=== PATIENT | female | born 1955 | race Caucasian/White ===

== ENCOUNTER 2017-02-27 14:56 | Inpatient (IN) | payer OTHER ==
[2017-02-27] VITALS (9 sets, daily range): BP systolic 88–122; BP diastolic 36–83; PULSE 115–147; RESP 18–24; O2SAT 94–100
[~2017-02-27] VITALS: Ht 167.6 cm; Wt 89.3 kg
[2017-02-27 15:18] LABS: BASOPHILS % (AUTO) 0.4 % (0-3); EOSINOPHILS % (AUTO) 1.1 % (0-5); MONOCYTES % (AUTO) 9.5 % (4-12); Mean Corpuscular Hemoglobin 31.1 pg (27.0-35.0); Mean Corpuscular Volume 90.2 fL (81-100); NEUTROPHILS % (AUTO) 59.9 % (40-74); Platelet Count 165 bil/L (150-400)
--- NOTE | 2017-02-27 15:27 | ED.REPORT ---
HPI-General Illness Date of Service Feb 27, 2017 ED Provider: Jules Canseco MD A 61 year old female with a history of PVCs presents to the ED via EMS with substernal chest pain onset suddenly at 13:45 while sitting down at work after lunch. The pain was described as "tightness," rated 6/10 with radiation down her left arm. Associated symptoms include palpitations, lightheadedness, and near-syncope. The patient denies shortness of breath or other symptoms. EMS found the patient in new-onset rapid atrial fibrillation with a heart rate of 170. She was given 22mg Diltiazem and 324 mg ASA, with mild relief of symptoms. After medication the patient's BP was 88/50 and her heart rate fell to 140 but remained irregular. The patient had similar symptoms six weeks ago, which resolved without treatment. The patient denies a history of RI, hypertension, stroke, or blood clots. She was previously prescribed Metoprolol for PVCs but stopped taking this medication one year ago. Nursing Notes Stated Complaint: RAPID HEART RATE Chief Complaint: Dysrhythmia/Cardiac Nursing Notes Reviewed: Yes Allergies: Coded Allergies: No Known Allergies (Unverified , 02/27/17) No Active Prescriptions or Reported Meds General Time Seen by MD: 15:25 Chief Complaint Chest pain Hx Obtained From: Patient Arrived By: Ambulance Sudden in Onset?: Yes Onset Occurred: 1 - 4 hours ago Symptom Duration: Since onset Location: : Chest Quality: Painful (Tight) Radiation: : Arm left Severity: Current: Mild Severity: Maximum: Pain level 6 out of 10 Associated with: Denies: Shortness of breath Recent Healthcare: No recent doctor visit Similar Sx Previous: Yes Past Medical History Past Medical History PVCs Past Surgical History Hysterectomy Appendectomy Smoking History Current Every Day Smoker (< 1 pack per day) Social History 5-6 alcoholic drinks per week Occupation [employer] Status Independent Review of Systems + Near-syncope Full Review of Systems Constitutional: Denies: Fever Respiratory: Denies: Non-productive cough, Shortness of breath Cardiovascular: Reports: Chest pain (Substernal), Palpitations GI: Denies: Diarrhea, Vomiting Neurologic: Reports: Lightheaded Complete sys rev & neg: except as marked. Physical Exam Vital Signs Vital Signs Date Time Temp Pulse Resp B/P Pulse Ox O2 Delivery O2 Flow Rate FiO2 02/27/17 19:00 115 24 114/66 94 Room Air 02/27/17 18:20 140 21 100/63 95 02/27/17 17:36 136 102/57 02/27/17 17:28 147 22 92/36 95 Room Air 02/27/17 16:52 142 24 88/54 95 Room Air 02/27/17 16:30 142 18 95/75 97 Room Air 02/27/17 15:08 126 20 113/83 100 Room Air Initial VS: Reviewed Extremities: Vascular intact (Warm and well-perfused), Neuro intact, No swelling (Calves), No tenderness (Calves) Skin: Warm, Dry Psychiatric: Mood/affect normal, Behavior normal, Normal thought content General/Constitutional: Awake, Alert Head / Eyes: Atraumatic, Normocephalic ENT: Airway patent, Mucous membranes moist Respiratory / Chest: Breath sounds NL, Breath sounds = bilat, No respiratory distress Cardiovascular: Heart sounds NL, Peripheral circulation NL (Good distal pulses) Heart Rate / Rhythm: Positive: Irregular rhythm, Tachycardia Abdomen: Soft, Non-tender, No distention Neurologic: Oriented X3, Speech NL (Speaking in full sentences ), No motor deficits Speech: Negative: Slurred No facial droop No lateralizing neurological deficits Interpretation & Diagnostics Lab Results Interpretation Result Diagram: 02/27/17 1500 02/27/17 1500 Test 02/27/17 15:00 White Blood Count 9.0th/mm3 (3.8-10.1) Red Blood Count 5.01mil/mm3 (3.90-5.20) Hemoglobin 15.6g/dL (12.0-15.6) Hematocrit 45.2% (35.0-46.0) Mean Corpuscular Volume 90.2fL (81-100) Mean Corpuscular Hemoglobin 31.1pg (27.0-35.0) Mean Corpuscular Hemoglobin Concent 34.5% (32.0-37.0) Red Cell Distribution Width 13.5% (12.3-15.4) Platelet Count 165bil/L (150-400) Neutrophils (%) (Auto) 59.9% (40-74) Lymphocytes (%) (Auto) 28.9% (14-46) Monocytes (%) (Auto) 9.5% (4-12) Eosinophils (%) (Auto) 1.1% (0-5) Basophils (%) (Auto) 0.4% (0-3) Hold Blue Top Tube Received (Received) Sodium Level 136mEq/L (134-144) Potassium Level 4.0mEq/L (3.5-5.2) Chloride Level 98mEq/L (97-108) Carbon Dioxide Level 21mmol/L (18-29) Blood Urea Nitrogen 12mg/dL (8-27) Creatinine 0.99mg/dL (0.57-1.00) Estimat Glomerular Filtration Rate 81mL/min (>59) Glucose Level 153mg/dL (60-99) Calcium Level 9.5mg/dL (8.5-10.1) Magnesium Level 2.0mg/dL (1.6-2.6) Total Bilirubin 0.3mg/dL (0.0-1.2) Aspartate Amino Transf (AST/SGOT) 17U/L (0-50) Alanine Aminotransferase (ALT/SGPT) 8U/L (0-32) Alkaline Phosphatase 92U/L (25-165) Pro-B-Type Natriuretic Peptide 217.6pg/mL (0-287) Total Protein 7.1g/dL (6.4-8.4) Albumin 4.0g/dL (3.4-5.0) Thyroid Stimulating Hormone (TSH) 2.680uIU/mL (0.450-4.500) Hold Red Top Tube Received (Received) ECG Interpretation ECG Interpretation: Atrial fibrillation with RVR rate 130 Normal axis Normal intervals No acute ST segments or T-wave abnormalities Time: 15:09 Interpreted by: ED physician ECG Interpretation: Repeat ECG obtained after attempted cardioversion: Atrial fibrillation rate 154 Otherwise unchanged from prior Time: 16:00 Interpreted by: ED physician X-Ray Chest Interpretation Chest Xray Interpretation: IMPRESSION: Interstitial opacities present bilaterally of indeterminate acuity. Pulmonary edema and/or atypical infection cannot be excluded and clinical correlation recommended. Dictated by: Placido GUSTAFSON Interpreted: Elizabeth Don MD on 02/27/2017 at 15:33 View: Portable Interpretation / Wet Read by: Interpret - Radiologist Procedures Electrical Cardioversion Electrical Cardioversion: Synchronized electrical cardioversion x2 Both times patient went into sinus rhythm rate 90s then within one minute was back in atrial fibrillation. Time: 15:55 Procedure Performed by: ED physician Indication: Atrial fibrillation Consent / Setup / Site Prep: Informed consent provided, Consent from patient , Time-out performed, Placed on oxygen, Placed on pulse oximeter, Place on child monitor, Hand hygiene observed, Stand sterile technique Procedural Sedation/Analgesia: Sedation: Etomidate Joules: 150 Procedure Successful: Yes Post-Procedure Rhythm: Persistent atrial fib Post-Procedure / Complications: No complications, Tolerated procedure well, Patient stable Proced Mod Sedation/Analgesia Time: 15:53 Procedure Performed by: ED physician Sedation Time: Enter # minutes (<10) Consent / Setup: Informed consent provided, Consent from patient, Time-out performed, Hand hygiene observed, Stand sterile technique, Head of bed at 30-60 deg Indication: Other (Electrical Cardioversion) Preparation: radiation monitor applied, Pulse oximeter applied, Constant attendance, IV access established, Eval last meal time, Supplemental oxygen, Procedure explained VS Prior to Procedure: O2 saturation normal, Blood pressure normal, Respiratory rate normal Airway Exam: Normal facial anatomy CVS/Resp Exam: Normal breath sounds Neuro Exam: Alert, No acute distress Sedation: Sedation: Etomidate ASA Classification: 1 normal healthy patient Response During Procedure: Handled secretions adeq, Maintained airway well, Oxygenation stable, Sedation appropriate, Vital signs stable Complications During/After: None Reversal: None required Mental Status After Procedure: Alert, Oriented X3, Response to verbal stim, Response to painful stim Post-Procedure: Alert prior to discharge, Vital signs normal Attestation: I performed procedure, I performed sedation Re-Eval/Medical Decision Med Decision/Clinical Course Pt is a 61 year old female with a history of PVCs who presents to the ED via EMS with substernal chest pressure onset suddenly at 13:45 while sitting down at work after lunch. The pain was described as "tightness," rated 6/10 with radiation down her left arm. Associated symptoms include palpitations, lightheadedness, and near-syncope. EMS found the patient in new-onset rapid atrial fibrillation with a heart rate of 170. She was given 22mg Diltiazem and 324 mg ASA, with mild relief of symptoms. After medication the patient's BP was 88/50 and her heart rate fell to 140 but remained irregular. The patient had similar symptoms six weeks ago, which resolved without treatment. The patient denies a history of RI, hypertension, stroke, or blood clots. She was previously prescribed Metoprolol for PVCs but stopped taking this medication one year ago. Upon arrival the patient is in atrial fibrillation with rapid ventricular response, her systolic blood pressure is in the low 100s and she is mentating normally. IV access was obtained, patient was placed on continuous child monitor and I administered a 2 L fluid bolus. ECG 1509 Atrial fibrillation with RVR rate 130 Normal axis Normal intervals No acute ST segments or T-wave abnormalities Labs: CBC unremarkable CMP unremarkable Good renal function No electrolyte abnormalities Normal troponin Chest x-ray: IMPRESSION: Interstitial opacities present bilaterally of indeterminate acuity. Pulmonary edema and/or atypical infection cannot be excluded and clinical correlation recommended. Dictated by: Placido Gordon RRKsenia Interpreted: Elizabeth Don MD on 02/27/2017 at 15:33 Given the patient's borderline blood pressure and the fact that she is able to pinpoint that her atrial fibrillation started just 1-2 hours prior to arrival I elected to proceed with electrical cardioversion. I was able to successfully cardiovert her back to sinus rhythm however she quickly went back into atrial fibrillation with RVR. A second attempt was made but again she quickly went back into A. fib with RVR. Repeat ECG 1600 obtained after attempted cardioversion: Atrial fibrillation rate 154 Otherwise unchanged from prior After attempted cardioversion the patient's blood pressure had improved into the 120s to 130s systolic and therefore I opted to initiate a diltiazem drip however she did not tolerate this in terms of her blood pressure, even at a relatively low dose her blood pressure dropped into the 80s systolic and she did not achieve adequate rate control. Therefore the diltiazem drip was stopped. I consult with cardiology and they recommended that she be treated with amiodarone. A 150 mg loading dose of amiodarone was administered and this did not significantly change her blood pressure which maintained in the 120s systolic and her heart rate improved into the low 100s. At this time, cause of the patient's A. fib with RVR is unclear. Upon initial workup by CT no evidence of acute coronary ischemia, pulmonary embolism or electrolyte abnormalities. I have administered IV magnesium to this patient in order to aid in management of her arrhythmia. Patient was admitted to the [facility] in consultation with cardiology. She was transferred in stable condition. Time of Eval: 15:42 Patient Status: Condition improved Re-Evaluation/Progress Note: Discussed with patient plan for sedation and electric cardioversion. She agrees with plan for care and all questions were addressed. Time of Eval: 16:34 Patient Status: Condition improved Re-Evaluation/Progress Note: Patient is now awake and alert after the sedation. Discussed results of electic cardioversion. Discussed with patient and her ECG, lab, and x-ray results, diagnosis, and plan for admit. They agree with plan for care and all questions were addressed. Time of Eval: 16:51 Patient Status: Condition unchanged Re-Evaluation/Progress Note: Patient rechecked. She reports feeling "groggy." Her heart rate is 118 and her BP is now 88/54. Time of Eval: 17:53 Patient Status: Condition improved Re-Evaluation/Progress Note: Patient rechecked. Consultation #1: Referral / Consult Name: Celso Edwards MD Consulted With: Cardiology Call Returned at: 16:53 Clinical Law Professor: Will see patient, Agrees with eval, Agrees with plan Note: Recommends stopping diltiazem, starting amiodarone and Lovenox. Recommends admission. Consultation #2: Referral / Consult Name: J Carlos Frank DO Consulted With: Hospitalist Call Returned at: 18:11 Clinical Law Professor: Agrees with eval, Agrees with plan, Accepts admit Note: Discussed patient's case Counseled Regarding: Diagnosis, Lab results, Need for admission Discharge & Departure Primary Impression: Atrial fibrillation with RVR Additional Impressions: Hypotension Hypotension type: unspecified hypotension type Qualified Code: I95.9 - Hypotension, unspecified Chest tightness Near syncope Disposition: ADMITTED TO HOSPITAL Discharge Condition All VS Reviewed: Yes Condition: Improved Referrals: [facility] Crit Care Except Billable Proc Time Spent: 135-164 minutes Services Performed: Patient management by me, Time spent at bedside, Reviewing test results, Reviewing imaging, Discussing patient care, Documentation in record, Time with fam/surrogate Scribe Attestation Portions of this note were transcribed by Milka Kelsey. I, Dr. Canseco, personally performed the history, physical exam, and medical decision-making; I reviewed and confirmed the accuracy of the information in the transcribed note. Signed by: Jorge Atkinson, 02/27/2017, 18:50 copies to: [facility] Jules Canseco MD Feb 27, 2017 15:27 MILKA KELSEY Feb 27, 2017 15:33
[2017-02-27] MEDS ORDERED: Etomidate 2 mg/mL 20 mL Inj IV ONE (15:30)
[2017-02-27] MEDS ORDERED: 0.9% Sodium Chloride 1,000 ML IV ONE ×2 (15:30→18:05)
--- NOTE | 2017-02-27 15:34 | DRSVH ---
PROCEDURE: X-RAY CHEST ONE VIEW, PORTABLE ([id number]) INDICATIONS: cp TECHNIQUE: One view of the chest was acquired. COMPARISON: None. FINDINGS: Surgical changes and devices: None. Lungs and pleura: No pleural effusions or pneumothorax. Interstitial opacities present bilaterally. Mediastinum: Mediastinal contours appear normal. Heart size is normal. Bones and chest wall: No suspicious bony lesions. Overlying soft tissues appear unremarkable. IMPRESSION: Interstitial opacities present bilaterally of indeterminate acuity. Pulmonary edema and/ or atypical infection cannot be excluded and clinical correlation recommended. Dictated by: Placido Gordon [facility] Interpreted: Elizabeth Don MD on 02/27/2017 at 15:33 Transcribed by: DARWIN on 02/27/2017 at 15:33 Approved by: Elizabeth Don MD, PhD on 02/27/2017 at 17:18
[2017-02-27 15:44] LABS: TROPONIN T < 0.010 ug/L (0.0-0.011)
[2017-02-27] MEDS ORDERED: Magnesium Sulfate 2 Gm/50 mL Water Premix IV ONE (15:56)
[2017-02-27] MEDS ORDERED: Ondansetron 2 mg/mL 2 mL Inj IVPUSH PRN ×2 (16:05→19:35)
[2017-02-27] MEDS ORDERED: Diltiazem Inj 125 MG in 0.9% Sodium Chloride 100 ML, Pharmacy To Mix 1 EA IV SCH (16:05)
[2017-02-27] MEDS ORDERED: Alum-Mag Hydrox-Simeth 30 mL Suspension PO PRN ×2 (16:05→19:35)
[2017-02-27] MEDS ORDERED: Amiodarone 150 mg/100 mL D5W 150 MG in IV Premix 1 EACH IV ONE (17:00)
[2017-02-27] MEDS ORDERED: Polyethylene Glycol (PEG) 17 Gm Powder PO PRN (19:35)
--- NOTE | 2017-02-27 20:20 | PCM.HPMED ---
Subjective Date of Service Feb 27, 2017 Primary Provider: Admitting Physician: J Carlos Frank DO Primary Care Physician: Nopcp Attending Physician: J Carlos Frank DO Admit Status: From the Emergency Department, Admit to [facility] Team Chief Complaint: Chest pain, heart palpitations History of Present Illness: This is a 61-year-old female with past medical history only significant for PVCs. She presented to the emergency room with chest tightness after having her lunch today, her symptoms were accompanied by lightheadedness and heart palpitations left jaw pain and left arm pain. No significant shortness of breath or diaphoresis no nausea or vomiting. She has a history of PVCs and was previously taking metoprolol. She states her insurance had changed and she no longer has a PCP or takes any prescription medications. She has not been taking metoprolol for 1 year. She has been having upper respiratory infection going on for 5 weeks with productive cough with phlegm, sore throat and congestion. Her has also been sick. She has had no difficulty with orthopnea. Prior to arrival in the emergency room, EMS diagnosed her with A. fib with RVR and she received Cardizem in Route which was noted to lower her blood pressure to around 80 systolic. In the emergency room cardioversion was attempted twice successfully returning to normal sinus rhythm but quickly reverted back into A. fib with RVR. A Cardizem drip was attempted which showed her blood pressure again. Cardiology was consulted who recommended amiodarone Review of Systems: As in history of present illness otherwise 12 point review of systems negative Allergies Coded Allergies: No Known Allergies (Unverified , 02/27/17) Home Medications No home medications PMH History of PVCs treated with metoprolol Surgical History Hysterectomy 2 (partial and full), appendectomy, removal of ovarian cyst, bunion surgery, right hand fracture Family History Mother at age 93 of old age. Father of Alzheimer's disease at age 87. Social History Hx Alcohol Use: Yes Hx Substance Use: No Smoking Status: Current Every Day Smoker (< 1 pack per day) Living Arrangement: with Family Exam Vital Signs Vital Sign - Last Date Time Temp Pulse Resp B/P Pulse Ox O2 Delivery O2 Flow Rate FiO2 02/27/17 20:04 136 02/27/17 19:00 24 114/66 94 Room Air Exam General: Alert, Oriented X3 NAD Head: Normocephalic, atraumatic Eyes: AILEEN, EOMI, no scleral Icterus Oropharynx: pink moist oral mucosa Neck: supple, trachea midline, no adenopathy Chest: clear to auscultation B/L, no wheezing rales or rhonchi Heart: Irregularly irregular. Tachycardic. Normal S1, S2, no murmurs noted Abdomen: soft, non-tender. Bowell sounds are normoactive. No guarding or rebound. Extremities: no cyanosis, clubbing or edema. No acute joint inflammation. Skin: no acute rashes or lesions noted Neuro: Cranial nerves II-XII intact, no focal findings. Psych: normal judgement and insight. Lab and Diagnostics Result Diagram: 02/27/17 1500 02/27/17 1500 Assessment & Plan This is a 61-year-old female with past medical history only significant for PVCs. She presented with chest pain and admitted with A. fib with RVR. she received Cardizem in Route which was noted to lower her blood pressure to around 80 systolic. In the emergency room cardioversion was attempted twice successfully returning to normal sinus rhythm but quickly reverted back into A. fib with RVR. A Cardizem drip was attempted which lowered her blood pressure again. Cardiology was consulted who recommended amiodarone. A. fib with RVR: -Patient intolerant of Cardizem due to hypotension. -Amiodarone has been started in the emergency room. I will continue the amiodarone drip. -Cardiology has been consulted -Magnesium and TSH within normal limits. We will check echocardiogram, trend troponin Chest pain: -Morphine, oxygen, nitroglycerin as needed. Continue daily aspirin. -Trend troponin -Check lipid panel Tobacco use disorder: -Advised on smoking cessation, we will provide a nicotine patch in the hospital. Nonspecific chest x-ray findings: -May be related to her ongoing 4-5 week URI symptoms versus possible pleural edema in the setting of rapid A. fib. -Observe for signs of infection, white count within normal limits. Afebrile -I recommend 4-6 week repeat chest x-ray CODE STATUS: Full code DVT prophylaxis: Lovenox, will be considered for Coumadin Disposition: Patient is independent with her ADLs, no significant needs anticipated at discharge. J Carlos Frank DO Feb 27, 2017 20:20
[2017-02-27] MEDS ORDERED: Amiodarone 360 mg/200 mL D5W Premix IV ONE (20:47)
[2017-02-27] MEDS ORDERED: IV Premix 1 EACH IV ONE (20:47)
[2017-02-27] MEDS: Amiodarone 360 mg/200 mL D5W 360 MG, Filter, Taxol 14256-28 1 EACH in IV Premix 1 EACH IV SCH (21:09)
--- NOTE | 2017-02-27 22:21 | NUR ---
ADMIT Patient admit for irregular heart rate. Amiodarone gtt started in room. Denies any chest pain or SOB. Has had an ongoing cough for a month per patient report. Patient is a smoker and patch ordered for morning. Oriented to room and call light. Will continue to monitor.
[2017-02-28] VITALS (12 sets, daily range): BP systolic 99–134; BP diastolic 67–84; PULSE 94–131; RESP 18–24; O2SAT 96–99
[2017-02-28] MEDS ORDERED: Amiodarone 360 mg/200 mL D5W Premix IV ONE ×2 (02:44→15:38)
[2017-02-28] MEDS ORDERED: IV Premix 1 EACH IV ONE ×2 (02:44→15:38)
[2017-02-28] MEDS: Amiodarone 360 mg/200 mL D5W 360 MG, Filter, Taxol 14256-28 1 EACH in IV Premix 1 EACH IV SCH ×2 (02:48→15:45)
[2017-02-28 03:21] LABS: TROPONIN T 0.01 ug/L (0.0-0.011)
--- NOTE | 2017-02-28 07:20 | NUR ---
Phone Call with Family Spoke with her daughter, Tali, this morning who said she was from [place]. Patient gave verbal consent that this nurse could speak with her daughter and give out medical information. Gave her daughter a verbal update on her mother's care and situation. She said she would call her mother later. Care continues.
--- NOTE | 2017-02-28 07:39 | PCM.PNMED ---
Subjective Date of Service Feb 28, 2017 Subjective No palpitations, or chest pressure or dyspnea. No nausea or leg pain or edema. One previous episode of heart racing. No nausea or diarrhea. Overnight events reviewed. Exam Vital Signs Vital Sign - Last Date Time Temp Pulse Resp B/P Pulse Ox O2 Delivery O2 Flow Rate FiO2 02/28/17 04:34 111 02/28/17 04:00 22 99/70 98 Nasal Cannula 2.00 02/27/17 20:00 36.9 Intake and Output 02/27/17 02/27/17 02/28/17 Cumulative From/Thru 14:59 22:59 06:59 02/27/17 15:08 - 02/28/17 04:51 Intake Total 2000 ml 220 ml 2220 ml Balance 2000 ml 220 ml 2220 ml Intake IV Total 2000 ml 220 ml 2220 ml Exam Alert and in no distress. Anicteric sclera Lungs clear, heart irregular and not tachy. Abdomen ND, NT No edema No rash. IVs and Medications Medications Reviewed: Medications were reviewed in detail Lab and Diagnostics Result Diagram: 02/27/17 1500 02/27/17 1500 Assessment & Plan This is a 61-year-old female with past medical history only significant for PVCs. She presented with chest pain and admitted with A. fib with RVR. she received Cardizem in Route which was noted to lower her blood pressure to around 80 systolic. In the emergency room cardioversion was attempted twice successfully returning to normal sinus rhythm but quickly reverted back into A. fib with RVR. A Cardizem drip was attempted which lowered her blood pressure again. Cardiology was consulted who recommended amiodarone. #. Atrial fibrillation with rapid ventricular response., POA. -Patient intolerant of Cardizem due to hypotension. -Amiodarone has been started in the emergency room. I will continue the amiodarone drip. -Cardiology has been consulted -Magnesium and TSH within normal limits. We will check echocardiogram, trend troponin ECHO today, consider CT Chest angio (father with unprovoked PE) #. Chest pain, POA. Resolved with rate control. -Morphine, oxygen, nitroglycerin as needed. Continue daily aspirin. -Trend troponin -Check lipid panel Plan as above. #. Tobacco use disorder (tobacco dependence), POA: -Advised on smoking cessation, we will provide a nicotine patch in the hospital. #. Nonspecific chest x-ray findings: -May be related to her ongoing 4-5 week URI symptoms versus possible pleural edema in the setting of rapid A. fib. -Observe for signs of infection, white count within normal limits. Afebrile -I recommend 4-6 week repeat chest x-ray CODE STATUS: Full code DVT prophylaxis: Lovenox, will be considered for Coumadin Disposition: Patient is independent with her ADLs, no significant needs anticipated at discharge. Pain Evaluation: Adequate Pain Control Resuscitation Status: CPR: Attempt Resuscitation Time spent 30 min Lucas Islas MD Feb 28, 2017 07:39
[2017-02-28] MEDS ORDERED: MeTOProlol XL 50 mg ER24 Tablet PO SCH (12:35)
--- NOTE | 2017-02-28 14:22 | NUR ---
Metoprolol New order to give oral Metoprolol at 1235. Medication has not arrived from pharmacy yet. Just spoke with Pharmacist Abran Miranda who said he would check and make sure the medication gets delivered. Care continues.
--- NOTE | 2017-02-28 16:10 | CONS ---
[address] [address] CONSULTATION REPORT PATIENT: ELAINE NAJERA : 1955 MR#: [id number] ADMIT: 02/27/2017 JOB ID: [id number] DATE OF SERVICE: 02/28/2017 I have been asked to see Mrs. Fowler for evaluation of persistent rapid atrial fibrillation. The patient has no past significant cardiac history and states that she has no history of any other significant medical problems. She has not seen a family doctor in a couple of years and used to take metoprolol on a regular basis for treatment of PVCs, but this was discontinued about a year ago. Yesterday, around noon shortly after lunch, she noted the onset of lightheadedness and rapid palpitations. She had a previous episode similar several weeks earlier that lasted for about an hour and a half but this persisted and so she contacted paramedics and presented to the emergency department. Her rapid palpitations were associated with some chest tightness or pressure. She was treated with diltiazem but did not tolerate that because of hypotension and ended up being cardioverted in the emergency department on two occasions converting to sinus rhythm for a very brief period of time and then with recurrence of rapid atrial fibrillation fairly quickly. I was contacted at that time and recommended initiation of intravenous amiodarone. I also recommended loading with digoxin but I do not see that that has been done. She has remained on intravenous amiodarone throughout the night and atrial fibrillation with heart rates in the 100-120 range. She continues to note symptoms of subtle substernal tightness and is uncomfortable in the bed today because of some left intrascapular discomfort that seems to be more positional and musculoskeletal. INCOMPLETE: Dictation ends here.
--- NOTE | 2017-02-28 16:18 | CONS ---
[address] [address] CONSULTATION REPORT PATIENT: ELAINE NAJERA : 1955 MR#: [id number] ADMIT: 02/27/2017 JOB ID: [id number] DATE OF SERVICE: On personal review of her chest x-ray, shows normal cardiac silhouette. She has diffusely increased interstitial lung markings noted but no clear areas of focal consolidation or effusions. IMPRESSION: This patient has new onset atrial fibrillation with difficult rate control. She is not hyperthyroid or hypothyroid and her clinical exam does not suggest valvular heart disease as a cause. Her clinical history, however, does suggest that obstructive sleep apnea may play a role, although typically with obstructive sleep apnea, atrial fibrillation tends to be nocturnal in origin and hers occurred shortly after lunch yesterday. At this point objective will be to establish anticoagulation, improved rate control and then will go ahead and do a cardioversion tomorrow morning if she remains in atrial fibrillation. I am going to add metoprolol to her amiodarone therapy for improved rate control today and will also discontinue the Lovenox shots and instead start her up on Xarelto 20 mg daily. If she remains in atrial fibrillation then plans will be made to cardiovert her tomorrow. I anticipate she would be able to go home tomorrow afternoon on metoprolol and Xarelto with recommendations for reestablishing with a primary care provider and getting scheduled for a sleep study. I will make arrangements for her to follow up in our office with one of our physician assistants, who can help coordinate the rest of her outpatient followup.
--- NOTE | 2017-02-28 17:00 | NUR ---
Discontinued Cardizem Drip Noted that although the Cardizem drip had been discontinued it was still active in the eMAR. Notified Dr. Islas via page at [phone] and he discontinued it and followed up verbally when passing by. Amiodarone drip continued. Care continues.
--- NOTE | 2017-02-28 17:48 | DRSVH ---
[facility] [address] [place] [address] Echocardiogram Report Name: ELAINE NAJERA Date: 02/28/2017 Height: 66 in Hospital Exam Location: [facility] Weight: 198 lb Gender: Female BSA: 2.0 m2 : 1955 Age: 61 yrs BP: 99/70 mmHg Reason For Study: Atrial fibrillation History: smoker Ordering Physician: [facility]PITAL[facility] Performed By: Lucía Duque Referring Physician: Celso Edwards Interpretation Summary The left ventricular cavity is small. Left ventricular wall thickness is mild -moderately increased. The ejection fraction is estimated to be 60-65%. There are no focal wall motion abnormalities. The right ventricle is normal in size and function. The right ventricular systolic pressure is estimated at 30 mmHg assuming a right atrial pressure of 8 mm Hg. The left atrium is mildly dilated. The right atrium is normal in size. In the apical 4 view there appears to be a small left to right color signal originating from the interatrial septum suggesting a small PFO/ASD. Consider agitated saline contrast limited study when afib is better rate controlled. There is mild mitral regurgitation. There is no other significant valvular heart disease. The aortic root is normal size. Procedure: A two-dimensional transthoracic echocardiogram with color flow and Doppler was performed. The study quality was technically adequate. There is no prior echocardiogram noted for this patient. The patient was in atrial fibrillation with heart rates between 83-129 bpm during the exam. Left Ventricle: The left ventricular cavity is small. Left ventricular wall thickness is mild-moderately increased. The ejection fraction is estimated to be 60-65%. There are no focal wall motion abnormalities. Diastolic function could not be accurately assessed due to atrial fibrillation. Right Ventricle: The right ventricle is normal in size and function. Atria: The left atrium is mildly dilated. The right atrium is normal in size. In the apical 4 view there appears to be a small left to right color signal originating from the interatrial septum suggesting a small PFO/ASD. Consider agitated saline contrast study when afib is better rate controlled. Mitral Valve: The mitral valve is normal in structure and function. There is mild mitral regurgitation. Aortic Valve: The aortic valve is normal in structure and function. No aortic regurgitation is present. Tricuspid Valve: The tricuspid valve leaflets are thin and pliable. There is mild tricuspid regurgitation. The right ventricular systolic pressure is estimated at 30 mmHg assuming a right atrial pressure of 8 mm Hg. Pulmonic Valve: The pulmonic valve is not well visualized. There is a trace or physiologic amount of pulmonic regurgitation. There is no other significant valvular heart disease. Great Vessels: The aortic root is normal size. The ascending aorta is normal in size. The aortic arch is normal in size. The IVC is of normal diameter and collapses less than 50% with a sniff. This suggests a right atrial pressure of 8 mm Hg. Pericardium/ Pleura There is no pericardial effusion. MMode/2D Measurements & Calculations LVIDd: 3.3 cm LA dimension: 4.0 cm RA long axis LVOT diam: 1.9 cm LVIDs: 2.4 cm Ao root diam FS: 28.2 % LA A2 area: 22.0 cm RA area EPSS: 0.35 cm LA A4 area: 23.9 cm Aortic Jxn: 2.5 cm IVSd: 1.5 cm LA length (vol) : 16.1 cm asc Aorta Diam LVPWd: 1.2 cm RA vol LA vol: 76.6 ml : 44.6 ml Ao Arch Diam (Prox LA vol index RA Trans): 2.5 cm : 22.4 mm2 IVC diam: 2.0 cm LV mayorga. diameter/BSA LV sys. diameter/BSA RVD1 (basal) (cm/m^2): 1.7 (cm/m^2): 1.2 Doppler Measurements & Calculations Ao V2 max: 93.6 cm/secMV E max carlos a Med Peak E' Carlos A TR max carlos a Ao max P.5 mmHg : 90.3 cm/sec : 234.8 cm/sec Ao mean P.0 mmHg E/E' med: 9.2 TR max PG LVOT Max Carlos A Lat Peak E' Carlos A : 22.1 mmHg : 74.8 cm/sec PA V2 max E/E' lat: 6.6 : 78.5 cm/sec RANDOLPH(I,D): 2.5 cm E/e' average: 7.9 PA mean PG sev ratio: 0.83 : 0.96 mmHg PA Accel Time : 0.07 sec MV dec time: 0.11 sec Ao V2 mean LV V1 max PG PA V2 mean : 66.4 cm/sec : 44.4 cm/sec Ao V2 VTI LV V1 VTI: 12.7 cm RANDOLPH(V,D): 2.4 cm2 RANDOLPH indexed to BSA (cm^2/m^2): 1.2 Reading Physician:ANDRIY
[2017-02-28] MEDS: MeTOProlol XL 50 mg ER24 Tablet PO SCH (23:45)
[2017-03-01] VITALS (7 sets, daily range): BP systolic 106–139; BP diastolic 67–77; PULSE 60–75; RESP 17–24; O2SAT 95–99
[2017-03-01] MEDS ORDERED: IV Premix 1 EACH IV ONE (02:32)
[2017-03-01] MEDS ORDERED: Amiodarone 360 mg/200 mL D5W Premix IV ONE (02:32)
[2017-03-01] MEDS: Amiodarone 360 mg/200 mL D5W 360 MG, Filter, Taxol 14256-28 1 EACH in IV Premix 1 EACH IV SCH (02:42)
--- NOTE | 2017-03-01 03:11 | NUR ---
Converted to SR Pt converted to SR at around 0150 tonight. EKG in chart. Rate 60s-70s, continues on amiodarone gtt and was given metoprolol dose last night per order. Pt denied pain, but was instructed to report pain or other symptoms. Pt verbalized understanding. Pt appears to sleep comfortably between care interventions and is monitored on MP30.
--- NOTE | 2017-03-01 08:32 | NUR ---
Social Work Note: Screen Note Data& Assessment: EMR reviewed. Agnes Davalos is a 61 year old female admitted on 02/27/2017 for AFIB with RVR. Pt has [employer] insurance coverage. Pt lives in [place] with her and is independent at baseline. Pt is currently ambulating in her room with FWW and SBA. SW to continue to follow if any needs arise. No discharge needs identified at this time. Plan: Anticipated discharge home via POV when medically ready. SW to continue to follow if any needs arise. No discharge needs identified at [facility]
[2017-03-01] MEDS: MeTOProlol XL 50 mg ER24 Tablet PO SCH (08:55)
--- NOTE | 2017-03-01 13:35 | NUR ---
Communication with Doctors/Amiodarone Drip 35 - Spoke with Dr. Islas in morning multi-disciplinary rounds and confirmed that the Amiodarone drip was intended to be stopped as it has been discontinued in the eMAR shortly before. 0944 - Discontinued the Amiodarone. About 1100 - Placed her on remote telemetry instead of the MP30 once a box was available. Care continues.
--- NOTE | 2017-03-01 16:20 | PCM.DIMED ---
Discharge Instructions Date of Service Mar 01, 2017 Dates of Hospitalization Feb 27, 2017 at 19:05 Discharge Diagnosis Discharge Diagnosis 1. Paroxysmal atrial fibrillation 2. Tobacco dependence Diet No restrictions Activity No restrictions Call your provider Fever or Chills, Shortness of breath, Chest pain Patient Instructions Cardiology will contact you with an appointment to see a cardiology provider in the next 2-3 weeks. Lucas Islas MD Mar 01, 2017 16:20
[2017-03-01] MEDS ORDERED: METO-274 PO (16:21)
[2017-03-01] MEDS ORDERED: RIVA20TA PO (16:21)
--- NOTE | 2017-03-01 16:41 | PCM.DC.MED ---
Discharge Summary Date of Service Mar 01, 2017 Dates of Hospitalization Date of Hospital Admission Feb 27, 2017 at 19:05 Date of Discharge: Mar 01, 2017 Providers: Admitting Physician: J Carlos Frank DO Primary Care Physician: Denis Attending Physician: J Carlos Frank DO Diagnosis at Time of Discharge Diagnosis at Time of Discharge 1. Paroxysmal atrial fibrillation 2. Tobacco dependence Consultations Cardiology, Dr. Hays Procedures XRay, CTs & MRIs Chest x-ray: Surgical changes and devices: None. Lungs and pleura: No pleural effusions or pneumothorax. Interstitial opacities present bilaterally. Mediastinum: Mediastinal contours appear normal. Heart size is normal. Bones and chest wall: No suspicious bony lesions. Overlying soft tissues appear unremarkable. IMPRESSION: Interstitial opacities present bilaterally of indeterminate acuity. Pulmonary edema and/or atypical infection cannot be excluded and clinical correlation recommended. Dictated by: Placido Gordon RRA Interpreted: Elizabeth Don MD on 02/27/2017 at 15:33 Transcribed by: DARWIN on 02/27/2017 at 15:33 Approved by: Elizabeth Don MD, PhD on 02/27/2017 at 17:18 ECG 12 Lead Initial ECG revealed atrial fibrillation with rapid response at a rate of [address] depressions globally. Cardiac Echo Impression Interpretation Summary The left ventricular cavity is small. Left ventricular wall thickness is mild -moderately increased. The ejection fraction is estimated to be 60-65%. There are no focal wall motion abnormalities. The right ventricle is normal in size and function. The right ventricular systolic pressure is estimated at 30 mmHg assuming a right atrial pressure of 8 mm Hg. The left atrium is mildly dilated. The right atrium is normal in size. In the apical 4 view there appears to be a small left to right color signal originating from the interatrial septum suggesting a small PFO/ASD. Consider agitated saline contrast limited study when afib is better rate controlled. There is mild mitral regurgitation. There is no other significant valvular heart disease. The aortic root is normal size. Invasive Procedures None Brief History This is a 61-year-old female with past medical history only significant for PVCs. She presented to the emergency room with chest tightness after having her lunch today, her symptoms were accompanied by lightheadedness and heart palpitations left jaw pain and left arm pain. No significant shortness of breath or diaphoresis no nausea or vomiting. She has a history of PVCs and was previously taking metoprolol. She states her insurance had changed and she no longer has a PCP or takes any prescription medications. She has not been taking metoprolol for 1 year. She has been having upper respiratory infection going on for 5 weeks with productive cough with phlegm, sore throat and congestion. Her has also been sick. She has had no difficulty with orthopnea. Prior to arrival in the emergency room, EMS diagnosed her with A. fib with RVR and she received Cardizem in Route which was noted to lower her blood pressure to around 80 systolic. In the emergency room cardioversion was attempted twice successfully returning to normal sinus rhythm but quickly reverted back into A. fib with RVR. A Cardizem drip was attempted which showed her blood pressure again. Cardiology was consulted who recommended amiodarone Hospital Course This is a 61-year-old female with past medical history only significant for PVCs. She presented with chest pain and admitted with A. fib with RVR. she received Cardizem in Route which was noted to lower her blood pressure to around 80 systolic. In the emergency room cardioversion was attempted twice successfully returning to normal sinus rhythm but quickly reverted back into A. fib with RVR. A Cardizem drip was attempted which lowered her blood pressure again. Cardiology was consulted who recommended amiodarone. #. Atrial fibrillation with rapid ventricular response., POA. -Patient intolerant of Cardizem due to hypotension. -Amiodarone has been started in the emergency room. I will continue the amiodarone drip. -Cardiology has been consulted -Magnesium and TSH within normal limits. We will check echocardiogram, trend troponin The patient was placed in the amiodarone drip. She did convert to sinus rhythm. Her amiodarone drip was discontinued. Echocardiogram was fairly unremarkable, she did have evidence of small PFO. Cardiology recommended rate control and short-term follow-up as well as his overall total for anticoagulation. #. Chest pain, POA. Resolved with rate control. -Morphine, oxygen, nitroglycerin as needed. Continue daily aspirin. -Trend troponin -Check lipid panel This resolved with rate control and cardioversion. There is no evidence of anything involving beyond a rate-related symptoms.. #. Tobacco use disorder (tobacco dependence), POA: -Advised on smoking cessation, we will provide a nicotine patch in the hospital. #. Nonspecific chest x-ray findings: -May be related to her ongoing 4-5 week URI symptoms versus possible pleural edema in the setting of rapid A. fib. -Observe for signs of infection, white count within normal limits. Afebrile -I recommend 4-6 week repeat chest x-ray Consider a repeat chest x-ray 4-5 weeks. CODE STATUS: Full code Exam Vital Signs (Last) Date Time Temp Pulse Resp B/P Pulse Ox O2 Delivery O2 Flow Rate FiO2 03/01/17 12:22 36.8 61 18 121/77 99 Room Air 02/28/17 04:00 2.00 Exam Patient was seen and examined on the day of discharge. Test 02/27/17 15:00 02/28/17 02:19 02/28/17 08:35 White Blood Count 9.0th/mm3 (3.8-10.1) Red Blood Count 5.01mil/mm3 (3.90-5.20) Hemoglobin 15.6g/dL (12.0-15.6) Hematocrit 45.2% (35.0-46.0) Mean Corpuscular Volume 90.2fL (81-100) Mean Corpuscular Hemoglobin 31.1pg (27.0-35.0) Mean Corpuscular Hemoglobin Concent 34.5% (32.0-37.0) Red Cell Distribution Width 13.5% (12.3-15.4) Platelet Count 165bil/L (150-400) Neutrophils (%) (Auto) 59.9% (40-74) Lymphocytes (%) (Auto) 28.9% (14-46) Monocytes (%) (Auto) 9.5% (4-12) Eosinophils (%) (Auto) 1.1% (0-5) Basophils (%) (Auto) 0.4% (0-3) Hold Blue Top Tube Received (Received) Sodium Level 136mEq/L (134-144) Potassium Level 4.0mEq/L (3.5-5.2) Chloride Level 98mEq/L (97-108) Carbon Dioxide Level 21mmol/L (18-29) Blood Urea Nitrogen 12mg/dL (8-27) Creatinine 0.99mg/dL (0.57-1.00) Estimat Glomerular Filtration Rate 81mL/min (>59) Glucose Level 153mg/dL (60-99) Hemoglobin A1c 5.5% (4.8-5.6) Calcium Level 9.5mg/dL (8.5-10.1) Magnesium Level 2.0mg/dL (1.6-2.6) Total Bilirubin 0.3mg/dL (0.0-1.2) Aspartate Amino Transf (AST/SGOT) 17U/L (0-50) Alanine Aminotransferase (ALT/SGPT) 8U/L (0-32) Alkaline Phosphatase 92U/L (25-165) Pro-B-Type Natriuretic Peptide 217.6pg/mL (0-287) Total Protein 7.1g/dL (6.4-8.4) Albumin 4.0g/dL (3.4-5.0) Thyroid Stimulating Hormone (TSH) 2.680uIU/mL (0.450-4.500) Hold Red Top Tube Received (Received) Triglycerides Level 169mg/dL (0-149) Cholesterol Level 182mg/dL (100-199) LDL Cholesterol, Calculated 104.200mg/dL (0-99) VLDL Cholesterol 33.800mg/dL HDL Cholesterol 44mg/dL (>39) Cholesterol/HDL Ratio 4.14 (0.0-4.4) Troponin T < 0.010ug/L (0.0-0.011) Discharge Medications Discharge Medications Metoprolol Succinate ER (Metoprolol Succinate ER) 100 Mg Tab.er.24h 100 MG PO DAILY Prescribed by: LUCAS MEIER MD Rivaroxaban (Xarelto) 20 Mg Tablet 20 MG PO DAILY Prescribed by: LUCAS MEIER MD Followup Plan Disposition: Home Discharge Diet: No restrictions Discharge Activity: No restrictions Patient Instructions Cardiology will contact you with an appointment to see a cardiology provider in the next 2-3 weeks. Time spent 40 minutes Lucas Meier MD Mar 01, 2017 16:41
--- NOTE | 2017-03-01 17:49 | NUR ---
Discharge She discharged at 1749 and walked out with her who came to take her home. Discussed with and gave her the discharge paperwork (two prescriptions, MD/nurse instructions, care notes). Answered her questions. Gave her the 1700 dose of Xeralto. Discontinued her IV and telemetry intact. She took all her belongings. She thanked staff for their great care and left with a smile.
--- NOTE | 2017-03-01 20:55 | PROG NOTE ---
[address] [address] PROGRESS NOTE PATIENT: ELAINE NAJERA : 1955 MR#: [id number] ADMIT: 02/27/2017 JOB ID: [id number] DATE: 03/01/2017 The patient converted early this morning back to normal sinus rhythm and has remained in sinus rhythm since. She is feeling quite a bit better. She is tolerating her medications well with heart rates in the 70s on her dose of 50 mg b.i.d. metoprolol. Her echocardiogram is reviewed and demonstrates normal right and left ventricular function. She may have a small secundum atrial septal defect, but it does not appear at all hemodynamically significant. At this point, I think it is reasonable for this patient to be discharged home. I am going to recommend that she follow up in 2-3 weeks with one of our mid-level providers in [facility] Cardiology and I will contact my office and have them make those arrangements and contact the patient at home. She should go home on metoprolol succinate 100 mg daily and Xarelto 20 mg daily. I have advised her to avoid aspirin and nonsteroidal anti-inflammatories, and she understands that her drug benefits program may cover different new anticoagulant medication and it would be fine to make that change, but she might be able to get a coupon for Xarelto for the next month while she sorts that out. I will have her scheduled to see either myself or one of my colleagues at my next available opportunity, and she is encouraged to follow up with her primary care provider. I have also spent some time with her discussing smoking cessation strategies, and she is interested in pursuing that. I appreciate the opportunity of assisting with her care. Do not hesitate to give me a call if you have any further questions.
== END 2017-03-01 17:40 | disposition home or self-care (01) | DRG 309 ==
LOC: EDBD 14:56 → SED 14:56 → PCC 19:05
PROVIDERS: ADMIT Family Medicine; ATTEND Family Medicine
PROC: 5A2204Z Restoration of Cardiac Rhythm, Single (ICD-10-PCS; principal; 2017-02-27)
PROC: 3E033RZ Introduction of Antiarrhythmic into Peripheral Vein, Percutaneous Approach (ICD-10-PCS; 2017-03-01)
DX: I48.0 Paroxysmal atrial fibrillation (principal); Q21.1 Atrial septal defect; F17.200 Nicotine dependence, unspecified, uncomplicated